=== PATIENT | female | born 1945 | race Two or more races ===

== ENCOUNTER 2016-09-20 18:11 | Observation (INO) | payer MEDICARE, MEDICAID ==
[~2016-09-20] VITALS: Ht 154.9 cm; Wt 81.2 kg
[2016-09-20] MEDS ORDERED: NAPR-874 PO (18:36)
[2016-09-20] MEDS ORDERED: ASPI-496 PO (18:36)
[2016-09-20] MEDS ORDERED: LOSA50TA6 PO (18:36)
[2016-09-20] MEDS ORDERED: ASPIRIN 81 MG TABLET CHEW PO ONE (19:00)
[2016-09-20] MEDS ORDERED: ASPIRIN 81 MG TABLET CHEW ONE (19:30)
[2016-09-20 19:39] LABS: BLOOD UREA NITROGEN 12 mg/dL (7-18)
[2016-09-20 19:47] LABS: ASPARTATE AMINO TRANSFERASE 17 U/L (15-37)
[2016-09-20 19:54] LABS: IS PT STATUS REG ER OR PRE ER? YES
[2016-09-20 22:52] VITALS: BP 147/89
[2016-09-21] MEDS ORDERED: LABETALOL 5MG/ML, 20ML IVPush PRN
[2016-09-21] MEDS ORDERED: TEMAZEPAM 15 MG CAPSULE PO PRN
[2016-09-21] MEDS ORDERED: ACETAMINOPHEN 325 MG TABLET PO PRN
[2016-09-21] MEDS ORDERED: DOCUSATE 100 MG CAPSULE PO PRN
[2016-09-21] MEDS: SODIUM CHLORIDE 0.9% 1,000 ML IV SCH ×2 (01:18→11:27)
[2016-09-21] MEDS: HEPARIN 5,000 UNITS/ML, 1ML SQ SCH ×3 (01:18→16:00)
[2016-09-21 01:35] LABS: IS PT STATUS REG ER OR PRE ER? NO
[2016-09-21 04:00] VITALS: BP 104/69
[2016-09-21 06:17] LABS: BLOOD UREA NITROGEN 12 mg/dL (7-18)
[2016-09-21 06:27] LABS: IS PT STATUS REG ER OR PRE ER? NO
[2016-09-21 06:30] VITALS: BP 126/84
[2016-09-21] MEDS ORDERED: REGADENOSON 0.4 MG/5 ML SYRINGE ONE (08:35)
[2016-09-21] MEDS ORDERED: LOSARTAN 50MG TABLET PO SCH (09:00)
[2016-09-21] MEDS ORDERED: ASPIRIN 81 MG TABLET EC PO SCH (09:00)
[2016-09-21 14:06] VITALS: BP 118/77
[2016-09-21] MEDS ORDERED: OMEP-110 PO (16:01)
== END 2016-09-21 17:37 | disposition home or self-care (01) ==
LOC: ED 21:33 → INTOOBSV 22:17 → EDIP 22:17 → 5SO 22:44 → UNDODISIN 09-21 17:37
PROVIDERS: ADMIT Internal Medicine; ATTEND Internal Medicine
DX: R07.89 Other chest pain (principal); I11.9 Hypertensive heart disease without heart failure; E66.9 Obesity, unspecified; R51 Headache; M54.12 Radiculopathy, cervical region; K21.9 Gastro-esophageal reflux disease without esophagitis; Z79.82 Long term (current) use of aspirin; Z79.899 Other long term (current) drug therapy; Z68.33 Body mass index [BMI] 33.0-33.9, adult
CPT/HCPCS: 36415; 70450; 71010; 78452; 80048; 80053; 80061; 83735; 83880; 84484; 85025; 85379; 93005; 93017; 93306; 96360; 96361; 96372; 99285; A9502; C9898; G0378; J1644; J2785; J7030

== ENCOUNTER 2019-11-03 21:51 | Observation (INO) | payer MEDICARE, MEDICAID ==
[~2019-11-03] VITALS: Ht 157.5 cm; Wt 84.1 kg
[~2019-11-03 21:51] MED LIST: ASPI-496 PO; LOSA50TA14 PO; NAPR250T6 PO; OMEP-110 PO
[2019-11-03] MEDS ORDERED: ONDANSETRON 2MG/ML, 2ML IVPush ONE (22:30)
[2019-11-03] MEDS ORDERED: ASPIRIN 81 MG TABLET CHEW PO ONE (22:30)
[2019-11-03] MEDS ORDERED: ASPIRIN 81 MG TABLET CHEW ONE (22:30)
[2019-11-03] MEDS ORDERED: ONDANSETRON 2MG/ML, 2ML ONE (22:30)
[2019-11-03] MEDS ORDERED: MORPHINE SULFATE 4 MG/ML, 1ML ONE (22:30)
[2019-11-03] MEDS ORDERED: MORPHINE SULFATE 4 MG/ML, 1ML IVPush PRN (22:30)
[2019-11-03 22:49] LABS: BASOPHILS # (AUTO) 0.02 x10^3/uL (0-0.1); BASOPHILS % (AUTO) 0 % (0-1); EOSINOPHILS # (AUTO) 0.06 x10^3/uL (0-0.4); EOSINOPHILS % (AUTO) 1 % (1-7); LYMPHOCYTES # (AUTO) 1.51 x10^3/uL (1-3.4); LYMPHOCYTES % (AUTO) 23 % (22-44); MD NO; MEAN CORPUSCULAR HEMOGLOBIN 29.6 pg (27.0-34.8); MEAN CORPUSCULAR VOLUME 89.7 fL (80-100); MEAN PLATELET VOLUME 7.9 fL (7.4-10.4); MONOCYTES % (AUTO) 8 % (2-9); NEUTROPHILS # (AUTO) 4.53 x10^3/uL (1.8-6.8); NEUTROPHILS % (AUTO) 68 % (42-75); PLATELET COUNT 203 x10^3/uL (130-400); RED BLOOD COUNT 4.49 x10^6/uL (3.82-5.3); RED CELL DISTRIBUTION WIDTH 14.6 % (9.6-15.2)
--- NOTE | 2019-11-03 22:50 | NUR ---
Pt presents to ed c/o cpx2 days on L side of chest, denies sob or radiation of pain. States only cardiac hx is htn. Denies respiratory s/s. All monitoring applied. Vss. Call light within reach. Pt medicated per jul. Awaiting results.
[2019-11-03 23:03] LABS: ALANINE AMINOTRANSFERASE 51 U/L (12-78); ALBUMIN 3.7 g/dL (3.4-5.0); ANION GAP 9 mmol/L (5-15); CALCIUM 8.2 mg/dL (8.5-10.1); CHLORIDE 109 mmol/L (98-107); CREATININE 0.84 mg/dL (0.55-1.02)
[2019-11-03 23:07] LABS: ALKALINE PHOSPHATASE 109 U/L (45-117); BILIRUBIN,TOTAL 0.7 mg/dL (0.2-1.0); TROPONIN I < 0.015 ng/mL (0.000-0.045)
--- NOTE | 2019-11-03 23:53 | NUR ---
REPORT OF PT FROM ALON SARGENT AND ASSUMING CARE OF PT AT THIS TIME.
[2019-11-04] MEDS ORDERED: ACETAMINOPHEN 325 MG TABLET PO PRN (00:30)
[2019-11-04] MEDS ORDERED: BISACODYL 10 MG SUPP PR PRN (00:30)
[2019-11-04] MEDS ORDERED: NITROGLYCERIN 0.4 MG BOTTLE (25 TABS) SL PRN (00:30)
[2019-11-04] MEDS ORDERED: POLYETHYLENE GLYCOL 17 GM PACKET PO PRN (00:30)
[2019-11-04] MEDS ORDERED: ONDANSETRON ODT 4 MG PO PRN (00:30)
[2019-11-04] MEDS ORDERED: hydrALAzine 20 MG/ML, 1ML IVPush PRN (00:30)
[2019-11-04] MEDS ORDERED: morphine SULFATE 10 MG/ML, 1ML IVPush PRN (00:30)
[2019-11-04 00:50] VITALS: BP 169/95
[2019-11-04] MEDS ORDERED: METO-264 PO (01:56)
[2019-11-04 03:30] LABS: TROPONIN I < 0.015 ng/mL (0.000-0.045)
[2019-11-04] MEDS ORDERED: ASPIRIN 81 MG TABLET EC PO SCH (06:00)
[2019-11-04 06:38] VITALS: BP 145/82
[2019-11-04] MEDS ORDERED: OMEPRAZOLE 20 MG CAPSULE.DR PO SCH (09:00)
[2019-11-04] MEDS ORDERED: SODIUM CHLORIDE FLUSH 10ML SYR IVF SCH (09:00)
[2019-11-04] MEDS ORDERED: SENNA/DOCUSATE TABLET PO SCH (09:00)
[2019-11-04] MEDS ORDERED: LOSARTAN 50MG TABLET PO SCH (09:00)
[2019-11-04] MEDS ORDERED: REGADENOSON 0.4 MG/5 ML SYRINGE ONE (09:33)
[2019-11-04 09:45] LABS: TROPONIN I < 0.015 ng/mL (0.000-0.045)
[2019-11-04 13:55] VITALS: BP 151/80
== END 2019-11-04 15:40 | disposition home or self-care (01) ==
LOC: ED 23:03 → INTOOBSV 23:57 → EDIP 23:57 → 5SO 11-04 00:42 → DCLOUNGE 11-04 15:33
PROVIDERS: ADMIT Internal Medicine; ATTEND Hospitalist
DX: R07.89 Other chest pain (principal); R60.0 Localized edema; I10 Essential (primary) hypertension; M54.12 Radiculopathy, cervical region; K21.9 Gastro-esophageal reflux disease without esophagitis; G89.29 Other chronic pain; R51 Headache; Z79.899 Other long term (current) drug therapy
CPT/HCPCS: 36415; 71045; 78452; 80053; 83690; 83880; 84484; 85025; 93005; 93017; 96374; 96375; 99285; A9502; G0378; J2270; J2405; J2785

== ENCOUNTER 2020-12-06 23:13 | Emergency (ER) | payer MEDICARE, MEDICAID ==
[~2020-12-06] VITALS: Ht 152.4 cm; Wt 81.8 kg
[~2020-12-06 23:13] MED LIST changes: +METO-264 PO; +NAPR-872 PO; -NAPR250T6 PO
[2020-12-06] MEDS ORDERED: ONDANSETRON 2MG/ML, 2ML ONE (23:55)
[2020-12-07] MEDS ORDERED: MORPHINE SULFATE 4 MG/ML, 1ML ONE (00:11)
[2020-12-07] MEDS ORDERED: ONDANSETRON 2MG/ML, 2ML IVPush ONE ×2 (00:30)
[2020-12-07] MEDS ORDERED: MORPHINE SULFATE 4 MG/ML, 1ML IVPush PRN (00:30)
--- NOTE | 2020-12-07 00:35 | NUR ---
received report from ALON David
[2020-12-07 01:00] LABS: BASOPHILS % (AUTO) 1 % (0-1); EOSINOPHILS % (AUTO) 3 % (1-7); LYMPHOCYTES % (AUTO) 25 % (22-44); MEAN CORPUSCULAR HEMOGLOBIN 30.1 pg (27.0-34.8); MEAN CORPUSCULAR HGB CONC 34.8 g/dL (32.4-35.8); MEAN PLATELET VOLUME 8.1 fL (7.4-10.4); MONOCYTES % (AUTO) 10 % (2-9); NEUTROPHILS % (AUTO) 62 % (42-75); PLATELET COUNT 258 x10^3/uL (130-400); RED BLOOD COUNT 4.58 x10^6/uL (3.82-5.3); RED CELL DISTRIBUTION WIDTH 14.3 % (9.6-15.2)
[2020-12-07 01:02] LABS: ALANINE AMINOTRANSFERASE 42 U/L (12-78); ANION GAP 10 mmol/L (5-15); CHLORIDE 104 mmol/L (98-107); CREATININE 0.69 mg/dL (0.55-1.02)
[2020-12-07 01:06] LABS: ALKALINE PHOSPHATASE 80 U/L (45-117); BILIRUBIN,TOTAL 0.8 mg/dL (0.2-1.0); TOTAL PROTEIN 7.6 g/dL (6.4-8.2); TROPONIN I < 0.015 ng/mL (0.000-0.045)
--- NOTE | 2020-12-07 01:15 | NUR ---
pt to CT
[2020-12-07] MEDS ORDERED: OMNIPAQUE 350 MG/ML, 100ML BOTTLE ONE (01:20)
--- NOTE | 2020-12-07 02:12 | NUR ---
pt provided ua sample, ua sent to lab
[2020-12-07 02:34] LABS: MICROSCOPIC NOT IND
--- NOTE | 2020-12-07 03:00 | NUR ---
pt resting on gurney, denies needs at this time.
[2020-12-07 03:45] VITALS: BP 122/63
--- NOTE | 2020-12-07 03:55 | NUR ---
Patient given discharge instructions and they have confirmed that they understand the instructions. Patient ambulatory with steady gait.
== END 2020-12-07 03:57 | disposition home or self-care (01) ==
LOC: ED 23:45
DX: K29.00 Acute gastritis without bleeding (principal); R07.89 Other chest pain; I10 Essential (primary) hypertension
CPT/HCPCS: 36415; 71045; 74177; 80053; 81003; 83605; 83690; 84484; 85025; 93005; 96374; 96375; 99285; J2270; J2405; Q9967